=== PATIENT | female | born 1980 | race Caucasian/White ===

== ENCOUNTER 2016-10-07 16:59 | Emergency (ER) | payer OTHER ==
[~2016-10-07] VITALS: Ht 172.7 cm; Wt 115.1 kg
[~2016-10-07 16:59] MED LIST: ALDOMET250 MG PO; AMLODIPINE BESYL5 MG PO; ENDOCET 5-3251 EACH PO; FERROUS SULFAT325 MG PO; FLINTSTONES COM18 MG PO; HUMALOG100 UNIT/2 SC; HUMULIN 70100 UNIT/3 SC; HUMULIN 70100 UNIT/3 SQ; IBUPROFEN800 MG PO; METFORMIN HCL500 MG PO; NIFEDIPINE ER30 MG PO
[2016-10-07] MEDS ORDERED: AMLODIPINE BESY10 MG PO (17:23)
[2016-10-07] MEDS ORDERED: ZOLOFT100 MG PO (17:24)
[2016-10-07] MEDS ORDERED: METFORMIN HCL500 MG PO (17:24)
[2016-10-07] MEDS ORDERED: ATORVASTATIN CA10 MG PO (17:24)
[2016-10-07 17:40] LABS: HEMATOCRIT 37.4 % (36.0-46.0); MCHC 32.4 G/DL (30.0-36.0); MCV 80.3 FL (83-99); PLATELET COUNT 235 K/uL (156-360); RBC DIS.WIDTH-CV 14.2 % (11.8-14.6); RBC DIS.WIDTH-SD 41.3 % (39-53); RED BLOOD COUNT 4.66 M/uL (3.80-5.20); WHITE BLOOD COUNT 10.2 K/uL (4.1-10.2)
[2016-10-07 17:47] LABS: CHLORIDE 103 mEq/L (99-109); POTASSIUM 3.5 mEq/L (3.7-5.4); SODIUM 135 mEq/L (136-147)
[2016-10-07 17:49] LABS: GLUCOSE 170 mg/dL (70-99)
[2016-10-07 17:50] LABS: ANION GAP 7 MEQ/L (2-14)
[2016-10-07 17:53] LABS: GFR ESTIMATE (CALCULATED) > 59 mL/min/
[2016-10-07 17:54] LABS: UREA NITROGEN (BUN) 13 mg/dL (9-23)
[2016-10-07 17:58] LABS: TROP-I INTERPRETATION NEGATIVE; TROPONIN-I < 0.01 ng/mL (0.0-0.30)
[2016-10-07 18:02] LABS: QUANTITATIVE HCG < 4.0 MIU/ML
[2016-10-07 18:58] LABS: ADD MIUA? YES; BILIRUBIN NEGATIVE; BLOOD SMALL; COLOR YELLOW ((YELLOW)); GLUCOSE (STRIP) 150; KETONES NEGATIVE; LEUKOCYTES NEGATIVE; NITRITE NEGATIVE; PROTEIN (STRIP) NEGATIVE; SPECIFIC GRAVITY 1.014 (1.000-1.030); UROBILINOGEN 0.2 MG/DL (0.2-1.0)
[2016-10-07 19:08] LABS: BACTERIA NONE SEEN /HPF; EPITHELIAL CELLS RARE /HPF; MUCUS TRACE /LPF; RED BLOOD CELLS 0-5 /HPF (0-5); WHITE BLOOD CELLS 0-5 /HPF (0-5)
[2016-10-07 21:16] LABS: TROP-I INTERPRETATION NEGATIVE; TROPONIN-I < 0.01 ng/mL (0.0-0.30)
[2016-10-07] MEDS ORDERED: MOTRIN800 MG PO (21:22)
[2016-10-07 21:45] VITALS: BP 168/82
== END 2016-10-07 21:46 | disposition home or self-care (01) ==
LOC: EME 16:59
PROVIDERS: Nurse Practitioner Family
DX: R07.2 Precordial pain (principal); R09.89 Other specified symptoms and signs involving the circulatory and respiratory systems; J02.9 Acute pharyngitis, unspecified; R05 Cough; I10 Essential (primary) hypertension; E78.5 Hyperlipidemia, unspecified; E11.9 Type 2 diabetes mellitus without complications; Z79.84 Long term (current) use of oral hypoglycemic drugs
CPT/HCPCS: 71020; 80048; 81003; 84484; 84702; 85027; 87651 90; 93005; 99281; 99284